=== PATIENT | male | born 1970 | race Two or more races ===

== ENCOUNTER 2019-05-31 14:48 | Emergency (ER) | payer SELFPAY ==
[~2019-05-31] VITALS: Ht 167.6 cm; Wt 95.0 kg
[~2019-05-31 14:48] MED LIST: ALBU2.5V8 NEB; DOXY100C14 PO; LACT1CAP19 PO; PRED50TA PO
[2019-05-31] MEDS: fentaNYL PF VIAL 100 MCG/2 ML VIAL IV ONE (16:45)
[2019-05-31] MEDS: IV NORMAL SALINE 1000ML BAG 1,000 ML IV ONE ×2 (16:51→18:39)
[2019-05-31] MEDS: IV NORMAL SALINE 1000ML BAG 1,000 ML IV SCH (16:51)
[2019-05-31] MEDS ORDERED: methylPREDNISolone SOD SUCC PF 125 MG/2 ML VIAL. ONE (16:53)
[2019-05-31] MEDS: methylPREDNISolone SOD SUCC PF 125 MG/2 ML VIAL. IV ONE (16:55)
[2019-05-31 16:56] LABS: BILIRUBIN,URINE NEGATIVE (NEG); CLARITY,URINE CLEAR; COLOR,URINE YELLOW; NITRITE,URINE POSITIVE (NEG); PH,URINE 5.5; PROTEIN,URINE 30 mg/dL (NEG-TRACE); UROBILINOGEN,URINE 0.2 mg/dL (0.2 mg/dL)
[2019-05-31] MEDS: IPRATRPIUM/ALBUTEROL 0.5/2.5MG 3 ML NEBU. NEB ONE (17:00)
[2019-05-31 17:01] LABS: BACTERIA,URINE MANY /HPF (0-FEW); RBC,URINE OCC /HPF (0-2); WBC,URINE >40 /HPF (0-4)
--- NOTE | 2019-05-31 17:11 | PHYS DOC ---
Past Medical History Past Medical History: High Cholesterol Additional Past Medical Histor: FATTY LIVER (REINALDO PALMER MD) Past Surgical History: Other Additional Past Surgical Histo: LEFT SHOULDER (REINALDO PALMER MD) Smoking Status: Current Every Day Smoker Alcohol Use: Occasionally Drug Use: None (REINALDO PALMER MD) Adult General Chief Complaint Chief Complaint: ABDOMINAL PAIN HPI HPI Patient is a 48 year old Greek speaking non-smoker male with history of dyslipidemia and fatty liver present with complaining of abdominal pain. History was taking with help of patient . Patient complaining of left lower quadrant constant sharp pain for the last 3 days associated with chills and subjective fever. Patient state the pain gradually getting worse and rated his pain 9/10. Patient states the pain radiated to left flank with sitting up and movement. Patient denies nausea and vomiting and states he had 1 episode of bright red blood stool today. Patient complaining of anorexia and denies urinary symptoms, chest pain, shortness of breath cough and congestion, URI symptoms. Patient was admitted at this hospital in April 23 diagnosis of pneumonia and was able to return to his work. She was seen by his primary care physician Dr. Blank Verdugo today and because of temperature of 101 and heart rate of 11 and left lower quadrant pain and rectal bleeding sent to ER. (REINALDO PALMER MD) Review of Systems Review of Systems Constitutional: Subjective fever and chills Eyes: Denies change in visual acuity, redness, or eye pain [] HENT: Denies nasal congestion or sore throat [] Respiratory: Denies cough or shortness of breath [] Cardiovascular: No additional information not addressed in HPI [] GI: Reports abdominal pain, bloody stools, denies vomiting : Denies dysuria or hematuria [] Musculoskeletal: Denies back pain or joint pain [] Integument: Denies rash or skin lesions [] Neurologic: Denies headache, focal weakness or sensory changes [] Endocrine: Denies polyuria or polydipsia [] All other systems were reviewed and found to be within normal limits, except as documented in this note. (REINALDO PALMER MD) Current Medications Current Medications Current Medications Medications (Trade) Dose Ordered Sig/Celine Start Time Stop Time Status Last Admin Dose Admin Albuterol/ Ipratropium (Duoneb) 3 ml 1X ONCE 05/31/19 17:00 05/31/19 17:01 DC 05/31/19 17:00 3 ML Fentanyl Citrate (Fentanyl 2ml Vial) 50 mcg 1X ONCE 05/31/19 16:45 05/31/19 16:46 DC Methylprednisolone Sodium Succinate (SOLU-Medrol 125MG VIAL) 125 mg STK-MED ONCE 05/31/19 16:53 05/31/19 16:54 DC Ondansetron HCl (Zofran) 4 mg 1X ONCE 05/31/19 16:45 05/31/19 16:46 DC 05/31/19 18:17 4 MG Piperacillin Sod/ Tazobactam Sod 3.375 gm/Sodium Chloride 50 ml @ 100 mls/hr 1X ONCE 05/31/19 17:45 05/31/19 18:14 DC 05/31/19 18:39 100 MLS/HR Sodium Chloride 1,000 ml @ 1,000 mls/hr 1X ONCE 05/31/19 17:45 05/31/19 18:44 DC 05/31/19 18:39 1,000 MLS/HR Tamsulosin HCl (Flomax) 0.4 mg 1X ONCE 05/31/19 18:30 05/31/19 18:33 DC Vancomycin HCl 250 ml @ 250 mls/hr 1X ONCE 05/31/19 17:45 05/31/19 18:44 DC 05/31/19 18:39 250 MLS/HR (GAB SAVAGE DO) Allergies Allergies Allergies Coded Allergies Type Severity Reaction Last Updated Verified No Known Drug Allergies 04/23/19 No (GAB SAVAGE DO) Physical Exam Physical Exam Constitutional: Well developed, well nourished, moderate distress, non-toxic appearance, temperature of 100.3. [] HENT: Normocephalic, atraumatic, bilateral external ears normal, oropharynx dry, no oral exudates, nose normal. [] Eyes: PERRLA, EOMI, conjunctiva normal, no discharge. [] Neck: Normal range of motion, no tenderness, supple, no stridor. [] Cardiovascular: Tachycardia, no murmur [] Lungs & Thorax: Bilateral breath sounds clear to auscultation [] Abdomen: Bowel sounds hypoactive, lower quadrant tenderness and rebound tenderness, soft, no masses, no pulsatile masses. [] Skin: Warm, dry, no erythema, no rash. [] Back: No tenderness, left CVA tenderness. [] Extremities: No tenderness, no cyanosis, no clubbing, ROM intact, no edema. [] Neurologic: Alert and oriented X 3, normal motor function, normal sensory function, no focal deficits noted. [] Psychologic: Affect anxious, mood normal. [] (REINALDO PALMER MD) Current Patient Data Vital Signs Vital Signs Date Time Temp Pulse Resp B/P (MAP) Pulse Ox O2 Delivery O2 Flow Rate FiO2 05/31/19 17:05 95 05/31/19 16:35 100.3 130 26 148/75 (99) Room Air 100.3 ([facility]) Lab Values Laboratory Tests Test 05/31/19 16:16 05/31/19 16:46 05/31/19 17:10 05/31/19 17:25 Urine Collection Type Unknown Urine Color Yellow Urine Clarity Clear Urine pH 5.5 Urine Specific [place] 1.020 Urine Protein 30 mg/dL (NEG-TRACE) Urine Glucose (UA) Negative mg/dL (NEG) Urine Ketones (Stick) Trace mg/dL (NEG) Urine Blood Small (NEG) Urine Nitrite Positive (NEG) Urine Bilirubin Negative (NEG) Urine Urobilinogen Dipstick 0.2 mg/dL (0.2 mg/dL) Urine Leukocyte Esterase Large (NEG) Urine RBC Occ /HPF (0-2) Urine WBC >40 /HPF (0-4) Urine Bacteria Many /HPF (0-FEW) Urine Mucus Marked /LPF Influenza Type A Antigen Negative (NEGATIVE) Influenza Type B Antigen Negative (NEGATIVE) O2 Saturation 89 % (92-99) L Arterial Blood pH 7.41 (7.35-7.45) Arterial Blood pCO2 at Patient Temp 29 mmHg (35-46) L Arterial Blood pO2 at Patient Temp 54 mmHg (75-108) L Arterial Blood HCO3 18 mmol/L (21-28) L Arterial Blood Base Excess -5 mmol/L (-3-3) L FiO2 5 lpm nc White Blood Count 10.9 x10^3/uL (4.0-11.0) Red Blood Count 5.06 x10^6/uL (4.30-5.70) Hemoglobin 15.0 g/dL (13.0-17.5) Hematocrit 44.6 % (39.0-53.0) Mean Corpuscular Volume 88 fL (79-100) Mean Corpuscular Hemoglobin 30 pg (25-35) Mean Corpuscular Hemoglobin Concent 34 g/dL (31-37) Red Cell Distribution Width 12.8 % (11.5-14.5) Platelet Count 219 x10^3/uL (140-400) Neutrophils (%) (Auto) 76 % (31-73) H Lymphocytes (%) (Auto) 20 % (24-48) L Monocytes (%) (Auto) 4 % (0-9) Eosinophils (%) (Auto) 0 % (0-3) Basophils (%) (Auto) 0 % (0-3) Neutrophils # (Auto) 8.3 x10^3/uL (1.8-7.7) H Lymphocytes # (Auto) 2.2 x10^3/uL (1.0-4.8) Monocytes # (Auto) 0.4 x10^3/uL (0.0-1.1) Eosinophils # (Auto) 0.0 x10^3/uL (0.0-0.7) Basophils # (Auto) 0.0 x10^3/uL (0.0-0.2) Prothrombin Time 15.3 SEC (11.7-14.0) H Prothrombin Time INR 1.2 (0.8-1.1) H Activated Partial Thromboplast Time 30 SEC (24-38) Sodium Level 138 mmol/L (136-145) Potassium Level 3.7 mmol/L (3.5-5.1) Chloride Level 101 mmol/L (98-107) Carbon Dioxide Level 23 mmol/L (21-32) Anion Gap 14 (6-14) Blood Urea Nitrogen 18 mg/dL (8-26) Creatinine 1.4 mg/dL (0.7-1.3) H Estimated GFR (Cockcroft-Gault) 54.3 BUN/Creatinine Ratio 13 (6-20) Glucose Level 132 mg/dL (70-99) H Lactic Acid Level 2.3 mmol/L (0.4-2.0) H Calcium Level 8.4 mg/dL (8.5-10.1) L Total Bilirubin 0.8 mg/dL (0.2-1.0) Aspartate Amino Transferase (AST) 21 U/L (15-37) Alanine Aminotransferase (ALT) 17 U/L (16-63) Alkaline Phosphatase 110 U/L (46-116) Creatine Kinase 54 U/L (39-308) ER-Jnf-S-Type Natriuretic Peptide 20 pg/mL (0-124) Total Protein 7.4 g/dL (6.4-8.2) Albumin 3.5 g/dL (3.4-5.0) Albumin/Globulin Ratio 0.9 (1.0-1.7) L Lipase 67 U/L (73-393) L Laboratory Tests 05/31/19 17:25 Laboratory Tests 05/31/19 17:25 (GAB SAVAGE DO) EKG EKG EKG interpreted by me. EKG at 1659 showed sinus tachycardia at rate of 123, left atrial abnormality, abnormal left axis deviation, no acute ST-T elevation. (REINALDO PALMER MD) Radiology/Procedures Radiology/Procedures [facility] [address] [place], [place] [id number] IMAGING REPORT Signed PATIENT: DANITA BRIZUELA FACCOUNT: [id number] : 1970 LOCATION: ER AGE: 48 SEX: M EXAM STATUS: REG ER ORD. PHYSICIAN: REINALDO PALMER MD REASON: left lower quadrant pain, fever and shortness of breath PROCEDURE: PORTABLE CHEST 1V Single view chest dated 05/31/2019: Comparison made to 04/23/2019. Clinical Indication: Left lower quadrant pain and shortness of breath. Findings: Single upright portable exam of the chest was performed. Heart size and mediastinal contours are within normal limits given technique. The lungs are clear without evidence of focal consolidation. Vascular interstitium is within normal limits. Impression:: Negative portable chest. Electronically signed by: Juan Campos MD (05/31/2019 5:20 PM) [id number] DICTATED and SIGNED BY: JUAN CAMPOS MD DATE: 05/31/19 1720 (REINALDO PALMER MD) Course & Med Decision Making Course & Med Decision Making Pertinent Labs and Imaging studies are pending. Evaluation of patient in ER showed 48-year-old male patient with complaining of chills and subjective fever and left lower quadrant pain for 3 days. Patient had temperature of 100.3 at arrival to ER with chills. Patient had left lower quadrant tenderness. Patient had O2 sat of 98% at arrival to ER with normal respiration and clear lung but suddenly developed shortness of breath and cough and hypoxia 80s and tachypnea and tachycardia. Patient was started on nonrebreather oxygen and DuoNeb and 1 dose of 125 mg of Solu-Medrol was given. Patient gradually felt better and O2 sat was stable at 97% on 5 L of nasal cannula oxygen. Chest x-ray did not show acute finding. Labs and CT abdomen and pelvis is pending. Patient treated with sepsis protocol with IV fluid and antibiotic after obtaining blood culture.Sign out given to at 1800 for further evaluation and final disposition. Discussed current findings and plan with patient and family, who acknowledge understanding and agreement. (REINALDO PALMER MD) Course & Med Decision Making Assumed care at shift change. Disposition pending CT abd/pel. Results revie wed and discussed with patient. Patient found to have 3.5 mm proximal left ureteral stone with an infected urine positive for LE greater than 30 WBCs. Previous provider started patient on vancomycin and Zosyn. Patient transferred to because [facility] does not have urology coverage. Patient agreeable with transfer plan. Patient to be transferred to [facility]-- Accepting Dr Boucher. (GAB SAVAGE DO) Dragon Disclaimer Dragon Disclaimer This electronic medical record was generated, in whole or in part, using a voice recognition dictation system. (REINALDO PALMER MD) Departure Departure Impression: Primary Impression: Sepsis Additional Impressions: Acute respiratory distress Abdominal pain Kidney stone Urinary tract infection Disposition: 05 TRANSFER OTHER ([facility]) Condition: STABLE Referrals: NO PCP (PCP) Critical Care Time Critical care time was 40 minutes exclusive of procedures. (REINALDO PALMER MD) Problem Qualifiers Primary Impression: Sepsis Sepsis type: sepsis due to unspecified organism Sepsis acute organ dysfunction status: unspecified Qualified Codes: A41.9 - Sepsis, unspecified organism Additional Impressions: Abdominal pain Abdominal location: left lower quadrant Qualified Codes: R10.32 - Left lower quadrant pain REINALDO PALMER MD May 31, 2019 17:11 GAB SAVAGE DO May 31, 2019 18:29
[2019-05-31 17:19] LABS: INFLUENZA A PATIENT NEGATIVE (NEGATIVE); INFLUENZA B PATIENT NEGATIVE (NEGATIVE)
--- NOTE | 2019-05-31 17:23 | RAD ---
Single view chest dated 05/31/2019: Comparison made to 04/23/2019. Clinical Indication: Left lower quadrant pain and shortness of breath. Findings: Single upright portable exam of the chest was performed. Heart size and mediastinal contours are within normal limits given technique. The lungs are clear without evidence of focal consolidation. Vascular interstitium is within normal limits. Impression:: Negative portable chest. Electronically signed by: Juan Campos MD (05/31/2019 5:20 PM) [id number]
[2019-05-31 17:25] LABS: PCO2 ABG 29 mmHg (35-46); PO2 ABG 54 mmHg (75-108)
[2019-05-31 17:26] LABS: BASE EXCESS ABG -5 mmol/L (-3-3); HCO3 ABG 18 mmol/L (21-28); SAT O2 ABG 89 % (92-99)
[2019-05-31 17:46] LABS: BASO % 0 % (0-3); EOS % 0 % (0-3); HEMATOCRIT 44.6 % (39.0-53.0); LYMPH # 2.2 x10^3/uL (1.0-4.8); LYMPH % 20 % (24-48); MEAN CORPUSCULAR HEMOGLOBIN 30 pg (25-35); MEAN CORPUSCULAR HGB CONC 34 g/dL (31-37); MEAN CORPUSCULAR VOLUME 88 fL (79-100); MONO # 0.4 x10^3/uL (0.0-1.1); MONO % 4 % (0-9); NEUT # 8.3 x10^3/uL (1.8-7.7); NEUT % 76 % (31-73); PLATELET COUNT 219 x10^3/uL (140-400); RED BLOOD COUNT 5.06 x10^6/uL (4.30-5.70); RED CELL DISTRIBUTION WIDTH 12.8 % (11.5-14.5); WHITE BLOOD COUNT 10.9 x10^3/uL (4.0-11.0)
[2019-05-31 17:55] LABS: PROTHROMBIN TIME PATIENT 15.3 SEC (11.7-14.0)
[2019-05-31 17:59] LABS: CALCIUM 8.4 mg/dL (8.5-10.1); CREATININE 1.4 mg/dL (0.7-1.3); GFR 54.3; POTASSIUM 3.7 mmol/L (3.5-5.1)
--- NOTE | 2019-05-31 17:59 | RAD ---
Study: CT abdomen/pelvis without intravenous contrast Indication: Left lower quadrant pain. Fever. Comparison: CT chest 04/23/2019 Technique: Helical CT imaging performed of the abdomen and pelvis without the use of intravenous contrast. Sagittal and coronal reformats were obtained. One or more of the following individualized dose reduction techniques were utilized for this examination: 1. Automated exposure control 2. Adjustment of the mA and/or kV according to patient size 3. Use of iterative reconstruction technique. Findings: Inherently limited evaluation without intravenous contrast. Chest: Improved aeration of the lung bases from the prior. Liver: Low-attenuation of the hepatic parenchyma suggesting a degree of hepatic steatosis. Gallbladder/Biliary Tree: Unremarkable. Pancreas: Unremarkable. Spleen: Within normal limits for size. Adrenal Glands: Unremarkable. Kidneys/Ureters/Bladder: Hydroureteronephrosis on the left. The left kidney is edematous with mild surrounding fat stranding. Intrarenal stone at the lower pole measuring 3 mm. Obstructing nephrolithiasis within the proximal aspect of the left ureter, image 110 series 2, measuring approximately 3.5 mm. Unremarkable right kidney and collecting system. Unremarkable urinary bladder. Reproductive Organs: Unremarkable prostate. Colon: No acute abnormality. Appendix: Normal. Small Bowel: Unremarkable. Stomach: Unremarkable. Vasculature: Unremarkable. Lymph Nodes: Unremarkable. Peritoneum and Body Wall: Unremarkable. Bones: No acute abnormality. Mild/moderate discogenic arthrosis/disc space height loss at L4-L5. Miscellaneous: None. Impression: 1. Hydronephrosis on the left in the setting of a 3.5 mm obstructing stone located at the proximal aspect of the ureter. Additional 3 mm nonobstructing intrarenal stone at the lower pole the left kidney. Unremarkable right kidney and collecting system. 2. Mild low-attenuation of the liver raising the question of mild hepatic steatosis. 3. Improved aeration of the lung bases relative to the CT of the chest from 04/23/2019. Electronically signed by: ISAIAH VILLEGAS MD (05/31/2019 5:56 PM) [id number]
[2019-05-31 18:13] LABS: ALBUMIN 3.5 g/dL (3.4-5.0); ALBUMIN/GLOBULIN RATIO 0.9 (1.0-1.7); TOTAL BILIRUBIN 0.8 mg/dL (0.2-1.0); TOTAL PROTEIN 7.4 g/dL (6.4-8.2)
[2019-05-31] MEDS: ONDANSETRON PF 4 MG/2 ML VIAL. IVP ONE (18:17)
[2019-05-31] MEDS: PIPERACILLIN/TAZOBACTAM 3.375 GM in IV NORMAL SALINE 50ML 50 ML IV ONE (18:39)
[2019-05-31] MEDS: VANCOMYCIN 1GM IVPB FOR OMNI 250 ML IV ONE (18:39)
[2019-05-31 18:51] VITALS: BP 123/69
[2019-05-31] MEDS: TAMSULOSIN 0.4 MG CAP.ER.24H. PO ONE (19:09)
--- NOTE | 2019-06-01 06:34 | EKG ---
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
--- NOTE | 2019-06-01 06:34 | EKG ---
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
== END 2019-05-31 19:40 | disposition short-term general hospital (02) ==
LOC: ER 14:48
DX: A41.9 Sepsis, unspecified organism (principal); N39.0 Urinary tract infection, site not specified; R10.32 Left lower quadrant pain; R19.7 Diarrhea, unspecified; R06.03 Acute respiratory distress; N20.0 Calculus of kidney; E78.00 Pure hypercholesterolemia, unspecified; F17.200 Nicotine dependence, unspecified, uncomplicated; Z98.890 Other specified postprocedural states
CPT/HCPCS: 36415; 36600; 71045; 74176; 80053; 81001; 82550; 82805; 83605; 83690; 83880; 85025; 85610; 85730; 87040; 87086; 87205; 87804; 93005; 94640; 96361; 96365; 96375; 99291; J2405; J2543; J2930; J3370; J7030; J7620

== ENCOUNTER → 2020-04-26 | Outpatient (CLI) | payer OTHER ==
[~2020-04-26] MED LIST changes: +DOXY-181 PO; -DOXY100C14 PO
--- NOTE | 2020-04-26 15:20 | RAD ---
EXAM: Chest, 2 views HISTORY: Shortness of breath. Pulmonary nodule. COMPARISON: 05/31/2019 FINDINGS: 2 views of the chest are obtained. There is no infiltrate, pleural effusion or pneumothorax . IMPRESSION: No acute pulmonary finding. Note is made that pulmonary nodules demonstrated on the prior CT dated 04/23/2019 are not well seen radiographically. Please refer to the CT report for follow-up re commendations. Electronically signed by: Josefa Richter MD (04/26/2020 3:14 PM) [id number]
== END ==
LOC: RAD 14:38
PROVIDERS: ATTEND Family Medicine
DX: R91.1 Solitary pulmonary nodule (principal); R06.02 Shortness of breath
CPT/HCPCS: 71046

== ENCOUNTER → 2020-05-01 | Outpatient (CLI) | payer OTHER ==
[~2020-05-01] MED LIST changes: +IOHEXOL 350 MG/ML 100 ML VIAL. IV ONE
--- NOTE | 2020-05-01 12:07 | RAD ---
CTA CHEST INDICATION: RECENT PNEUMONIA, SOA, lung nodules Comparison: 04/23/2019. TECHNIQUE: Following the uneventful administration of intravenous contrast, 100 cc Omnipaque 350, axi al CT sections were obtained through the lungs and upper abdomen. Multiplanar reconstructions and MIP images were obtained. PQRS compliance statement: One or more of the following individualized dose reduction techniques were utilized for this examinat ion: 1. Automated exposure control 2. Adjustment of the mA and/or kV according to patient size 3. Use of iterative reconstruction technique FINDINGS: Pulmonary arteries: No evidence of pulmonary thromboembolic disease Lungs and Airways: Mild scattered bilateral groundglass opacities. There are couple small pulmonary n odules which remain stable, with administrative representative nodule as follows: Stable right lower lobe 5 mm nodul e (series 3 image 87). No abnormality of the central airways. Pleura: The pleural spaces are normal. Heart and Mediastinum: The visualized thyroid is normal in size and attenuation. No axillary or supra clavicular lymphadenopathy. No mediastinal, hilar or retrocrural lymphadenopathy. The heart and peric ardium are within normal limits. The great vessels of the thorax are normal. Abdomen: Limited images through the upper abdomen show no abnormality of the visualized organs. Bones and Soft Tissues: The visualized bones and chest wall soft tissues are within normal limits. IMPRESSION: 1. No evidence of pulmonary thromboembolic disease. 2. Mild scattered groundglass opacities, consistent with patient's history of infection. 3. Few small pulmonary nodules remain stable. Electronically signed by: Simba Roy MD (05/01/2020 12:04 PM) [id number]
== END ==
LOC: CT 07:55
PROVIDERS: ATTEND Family Medicine
DX: R91.1 Solitary pulmonary nodule (principal); J18.9 Pneumonia, unspecified organism; Z87.01 Personal history of pneumonia (recurrent)
CPT/HCPCS: 71275; Q9967